=== PATIENT | male | born 1975 | race Caucasian/White ===

== ENCOUNTER 2017-08-24 13:12 | Emergency (ER) | payer MEDICAID, OTHER ==
[~2017-08-24] VITALS: Ht 188 cm; Wt 81.6 kg
[2017-08-24 13:20] VITALS: BP 129/80
== END 2017-08-24 13:51 | disposition home or self-care (01) ==
LOC: ER 13:13
DX: H60.8X1 Other otitis externa, right ear (principal); F17.200 Nicotine dependence, unspecified, uncomplicated
CPT/HCPCS: 99283; 99406; A4606; Z7610

== ENCOUNTER 2017-09-06 10:36 | Emergency (ER) | payer MEDICAID ==
[~2017-09-06] VITALS: Ht 188 cm; Wt 81.6 kg
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
--- NOTE | 2017-09-06 11:38 | NUR ---
Patient discharged to home in stable condition. Written and verbal after care instructions given. Patient verbalizes understanding of instruction.
[2017-09-06 11:41] VITALS: BP 131/69
== END 2017-09-06 11:43 | disposition home or self-care (01) ==
LOC: ER 10:37
DX: M54.5 Low back pain (principal); F17.200 Nicotine dependence, unspecified, uncomplicated; V49.59XA Passenger injured in collision with other motor vehicles in traffic accident, initial encounter; Y93.89 Activity, other specified; Y92.413 State road as the place of occurrence of the external cause; Y99.8 Other external cause status
CPT/HCPCS: 72110; 99284; A4606; Z7610

== ENCOUNTER 2017-11-02 11:19 | Emergency (ER) | payer MEDICAID ==
[~2017-11-02] VITALS: Ht 188 cm; Wt 80.7 kg
[2017-11-02 11:20] VITALS: BP 128/73
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
[2017-11-02] MEDS ORDERED: KETOROLAC TROMETHAMINE INJ 30 MG/ML VIAL ONE (11:52)
[2017-11-02] MEDS ORDERED: CYCLOBENZAPRINE 10 MG TABLET ONE (11:52)
--- NOTE | 2017-11-02 11:59 | NUR ---
PATIENT MEDICATED PER MD ORDERS.
[2017-11-02] MEDS ORDERED: CYCLOBENZAPRINE 10 MG TABLET PO ONE (12:00)
[2017-11-02] MEDS ORDERED: KETOROLAC TROMETHAMINE INJ 60 MG/2 ML VIAL IM ONE (12:00)
--- NOTE | 2017-11-02 12:10 | NUR ---
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
--- NOTE | 2017-11-02 13:29 | NUR ---
Patient discharged to home in stable condition. Written and verbal after care instructions given. Patient verbalizes understanding of instruction.
== END 2017-11-02 13:20 | disposition home or self-care (01) ==
LOC: ER 11:22
DX: S67.21XA Crushing injury of right hand, initial encounter (principal); S67.192A Crushing injury of right middle finger, initial encounter; S67.194A Crushing injury of right ring finger, initial encounter; B35.0 Tinea barbae and tinea capitis; L01.09 Other impetigo; M62.830 Muscle spasm of back; K13.0 Diseases of lips; F17.210 Nicotine dependence, cigarettes, uncomplicated; W11.XXXA Fall on and from ladder, initial encounter; Y93.89 Activity, other specified; Y92.89 Other specified places as the place of occurrence of the external cause; Y99.8 Other external cause status
CPT/HCPCS: 73130; 96372; 99284; 99406; A4606; J1885; Z7610

== ENCOUNTER 2017-11-03 11:37 | Emergency (ER) | payer MEDICAID ==
[~2017-11-03] VITALS: Ht 188 cm; Wt 80.7 kg
[2017-11-03 11:37] VITALS: BP 125/66
--- NOTE | 2017-11-03 12:36 | NUR ---
LD received a call from Shan in ER stating Dr. Torres would like for LD to see the pt. for resources. LD met with pt. bedside. Pt. is alert and oriented x 3. Pt. appears disheveled. Pt. is cooperative with SW. Pt. is requesting for financial assistance. LD referred pt. to [employer] in [place] and informed him to apply for GR and food stamps. Pt. stated he did apply at the [facility] location but was denied. Pt. informed pt. she is surprised he was denied since pt. has no income and has [employer]. Pt. then stated, he has a deportation order to go back to [place]. SW informed pt. that he will no qualify for any state funded financial resources due to his deportation status. Pt. resides with his mother. Pt. requested for bus tokens. LD informed him she will be able to get him $2 for bus transportation. Pt. accepted. LD requested for Shan to get the $2 from nursing masonry supervisor for the pt. LD updated Dr. Torres with the aforementioned information. No other social service needs are requested at this time. SW is available, if needed.
== END 2017-11-03 12:24 | disposition home or self-care (01) ==
LOC: ER 11:38
DX: S60.414A Abrasion of right ring finger, initial encounter (principal); F17.200 Nicotine dependence, unspecified, uncomplicated; Z59.9 Problem related to housing and economic circumstances, unspecified; W11.XXXA Fall on and from ladder, initial encounter; Y93.89 Activity, other specified; Y92.218 Other school as the place of occurrence of the external cause; Y99.8 Other external cause status
CPT/HCPCS: 99282; A4606; Z7610

== ENCOUNTER 2018-03-13 01:31 | Emergency (ER) | payer MEDICAID ==
[~2018-03-13] VITALS: Ht 188 cm; Wt 74.8 kg
[2018-03-13 03:44] VITALS: BP 126/82
== END 2018-03-13 05:23 | disposition home or self-care (01) ==
LOC: ER 01:34
DX: F12.10 Cannabis abuse, uncomplicated (principal); F41.9 Anxiety disorder, unspecified; R42 Dizziness and giddiness; F17.200 Nicotine dependence, unspecified, uncomplicated
CPT/HCPCS: 99281; A4606; Z7502